=== PATIENT | female | born 1945 | race Caucasian/White ===

== ENCOUNTER 2018-06-05 14:35 | Inpatient (IN) | payer OTHER, MEDICAID ==
[~2018-06-05] VITALS: Ht 160 cm; Wt 56.9 kg
[2018-06-05 14:59] VITALS: Ht 160 cm; Wt 56.9 kg
--- NOTE | 2018-06-05 17:55 | NUR ---
PATIENT PRESENTS TO ED WITH C/O RUIZ AND DIZZINESS FOR THE PAST 3 DAYS. STS THAT SHE DOES HAVE NAUSEA AND VOMITING. DENIES PAIN ELSEWHERE. DENIES FEVER. PATIENT IS BREATHING E/U, BILATERAL CHEST RISE. BED AT LOWEST LEVEL. FAMILY AT BEDSIDE. DR. CEDILLO AT BEDSIDE PERFORMING MSE
[2018-06-05 18:05] LABS: BASOPHIL % 0.9 % (0-2); PLATELET COUNT 235 x10^3mcL (130-400); RED CELL DISTRIBUTION WIDTH 14.2 % (11.5-14.5)
[2018-06-05 18:22] LABS: ALKALINE PHOSPHATASE 103 U/L (46-116); ALT/SGPT 15 U/L (14-59); BILIRUBIN TOTAL 0.37 mg/dL (0.20-1.00); CARBON DIOXIDE 17.5 mmol/L (21-32); CHOLESTEROL 171 mg/dL (<200); CHOLESTEROL/HDL RATIO 3.9; GLUCOSE SERUM 153 mg/dL (74-106); HDL CHOLESTEROL 44 mg/dL (40-60); LIPASE 335 IU/L (73-393); TOTAL PROTEIN, SERUM 7.3 g/dL (6.4-8.2); TRIGLYCERIDES 134 mg/dL (<150)
[2018-06-05 18:31] LABS: FREE T4 0.88 ng/dL (0.76-1.46); T4(THYROXINE) 5.6 ug/dL (4.7-13.3)
[2018-06-05 18:32] LABS: CHLORIDE SERUM 58 mmol/L (98-107)
[2018-06-05 18:35] LABS: T3 TOTAL 0.8 ng/mL
--- NOTE | 2018-06-05 18:57 | NUR ---
CRITICAL LAB RESULT= TROPONIN LEVEL=0.140. DR. CEDILLO AND PRIMARY RN-CHAR, RN NOTIFIED.
[2018-06-05 18:58] LABS: AST/SGOT 24 U/L (15-37); SODIUM SERUM 132 mmol/L (136-145)
--- NOTE | 2018-06-05 19:07 | NUR ---
RECEIVED PATIENT REPORT FROM VICKY TOM TO ASSUME PRIMARY CARE
[2018-06-05 19:11] LABS: UA SPECIFIC GRAVITY 1.025 (1.005-1.035); microscopic required? YES; urine erythrocyte TRACE (NEGATIVE)
[2018-06-05 19:12] LABS: ALBUMIN 2.5 g/dL (3.4-5.0)
[2018-06-05 19:13] LABS: CREATININE SERUM 7.2 mg/dL (0.6-1.0); POTASSIUM SERUM 5.7 mmol/L (3.5-5.1)
--- NOTE | 2018-06-05 19:14 | NUR ---
PT MEDICATED PER EMAR ORDERS. PT REPORTS DIZZINESS WHILE LAYING IN ED GURNEY. PT DENIES ANY NAUSEA OR BLURRED VISION. PT HAS BED IN LOWEST SETTING WITH SAFETY MEASURES IN PLACE. PT HAS FAMIYL AT BEDSIDE. PT IS RESPS ARE E/U. NO DISTRESS NOTED
--- NOTE | 2018-06-05 19:16 | NUR ---
DR CEDILLO AT BEDSIDE TO DISCUSS PLAN OF CARE WITH PT
[2018-06-05] MEDS ORDERED: LOSARTAN POTASS1 TAB (19:17)
[2018-06-05] MEDS ORDERED: CALCITRIOL0.25 MCG (19:18)
[2018-06-05] MEDS ORDERED: VITAMIN B121000 MCG (19:19)
[2018-06-05 20:18] LABS: PHOSPHOROUS 4.5 mg/dL (2.5-4.9)
--- NOTE | 2018-06-05 21:05 | NUR ---
CALLED TO GIVE REPORT TO MIREYA TOM ON TELE FLOOR TO GIVE REPORT. RN ASKED TO CALL BACK IN 5 MIN. WILL CALL BACK
--- NOTE | 2018-06-05 21:35 | NUR ---
GAVE PT REPORT TO MIREYA TOM TO ASSUME PRIMARY CARE ONCE PT IS ADMITTED TO TELE FLOOR ROOM 250A.
--- NOTE | 2018-06-05 21:40 | NUR ---
PT WHEELED OUT OF ED VIA ED GURNEY. PT ADMITTED TO TELE FLOOR ROOM 250A. PT ESCORTED BY APPLE TOM. NO INCIDENCE NOTED
[2018-06-05 21:57] VITALS: BP 193/82
--- NOTE | 2018-06-05 22:01 | NUR ---
RECEIVED PT FROM ED VIA RAUL. ORIENTED PT TO ROOM AND SURROUNDINGS. IV NOTED TO RH PATENT AND INTACT. TELE 5 PLACED ON PT READNIG STA. INSTRUCTED PT ON THE USE OF CALL LIGHT FOR ASSISTANCE. ENDORSED PT TO PRIMARY NURSE MIREYA
[2018-06-06] VITALS (7 sets, daily range): BP systolic 122–190; BP diastolic 45–99
--- NOTE | 2018-06-06 01:33 | NUR ---
DR MAI MADE AWARE OF LATEST TROPONIN LEVEL 0.133 AWAITING FOR FURTHER ORDERS.
--- NOTE | 2018-06-06 03:04 | NUR ---
PATIENT GIVEN HYDRALAZINE 10 MG IVP ORDERED FOR BLOOD PRESSURE 195/89 ORDERED.
--- NOTE | 2018-06-06 06:21 | NUR ---
PATIENT RESTING IN BED AT THIS TIME. RESPIRATION EVEN AND UNLABORED, ON ROOM AIR. ONGOING 0.9% NS AT 100 CC/HR INFUSING WELL AT THE RIGHT HAND. DENIES DIZZINESS. DENIES PAIN. ASSISTED WITH NEEDS. SAFETY OBSERVED. PLACED BED IN THE LOWEST POSITION. PLACED CALL LIGHT WITHIN REACH AT ALL TIMES. STAYED OVERNIGHT.
[2018-06-06 06:27] LABS: CALCIUM 8.9 mg/dL (8.5-10.1); CHLORIDE SERUM 113 mmol/L (98-107); GLUCOSE SERUM 130 mg/dL (74-106); MAGNESIUM 1.8 mg/dL (1.8-2.4); PHOSPHOROUS 3.9 mg/dL (2.5-4.9); POTASSIUM SERUM 5.5 mmol/L (3.5-5.1); SODIUM SERUM 145 mmol/L (136-145)
[2018-06-06 06:40] LABS: CREATININE SERUM 6.8 mg/dL (0.6-1.0)
[2018-06-06 06:43] LABS: BASOPHIL % 0.4 % (0-2); PLATELET COUNT 224 x10^3mcL (130-400)
[2018-06-06 07:14] LABS: RED CELL DISTRIBUTION WIDTH 14.8 % (11.5-14.5)
--- NOTE | 2018-06-06 07:39 | NUR ---
RECEIVED AWAKE, ALERT AND ORIENTED. FOLLOWS COMMANDS. NO C/O DIZZINESS AT THIS TIME. FAMILY AT BEDSIDE. NO C/O PAIN OR DISCOMFORT. WILL CONTINUE WITH PLAN OF CARE.
--- NOTE | 2018-06-06 10:12 | NUR ---
BP 181/76, HYDRALAZINE GIVEN. PT ASYMPTOMATIC. DENIES LIGHTHEADED AT THIS TIME.
--- NOTE | 2018-06-06 14:12 | NUR ---
BP STILL ELEVETED, 191/90. PT MEDICATED WITH ORDERED HYDRALAZINE PO. RESTING IN BED. NO ACUTE DISTRESS NOTED. NO C/O PAIN OR DISCOMFORT. FAMILY AT BEDSIDE.
--- NOTE | 2018-06-06 15:22 | NUR ---
BP RECHECKED AND IS 156/77 HR 101. PT IN NO DISTRESS. RESTING IN BED.
--- NOTE | 2018-06-06 16:03 | NUR ---
BP NOW 122/63.
--- NOTE | 2018-06-06 18:24 | NUR ---
24 HRS URINE COLLECTION STARTED AT 1800. PT AND FAMILY AWARE, SPECIMENT CONTAINER PROVIDED.
--- NOTE | 2018-06-06 18:45 | NUR ---
REMAINS IN NO DISTRESS. AWAKE AND ALERT. SITTING ON A CHAIR EATING DINNER. NO C/O PAIN OR DISCOMFORT AT THIS TIME. IVF INFUSING WELL AND SITE CLEAR. CALL LIGHT WITHIN REACH. WILL BE ENDORSED TO INCOMING SHIFT.
--- NOTE | 2018-06-06 19:59 | NUR ---
RECEIVED PT IN BED AAOX4 KYRGYZ SPEAKING ONLY , PT DENY PAIN AT THE MOMENT , LUNG SOUNDS CTA, ABD SOFT BS ACTIVE X4, PIV INFILTRATED WILL RE=INSERT NEW IV , ON TELE NUMBER 5 SHOWS NRS , CALL LIGHT WITHIN PT'S REACH , WILL CON'T TO MONITOR AND ASSIST PT WITH ,CARE
[2018-06-06 20:03] LABS: AMPHETAMINE QUAL UR NONE DETECTED (See below)
--- NOTE | 2018-06-06 20:28 | NUR ---
PATIENT'S PLAN OF CARE WAS DISCUSSED AND REVIEWED WITH PANTS CUTTER: EDDIE MENDES
--- NOTE | 2018-06-07 00:33 | NUR ---
UNABLE TO COLLECT 24HRS URINE , PT'S HAVING LOOSE STOOL FROM LAXATIVE , WILL NOTIFY .
[2018-06-07 05:29] VITALS: BP 146/63
--- NOTE | 2018-06-07 05:57 | NUR ---
I HAVE REVIEWED THE DATA COLLECTION BY BUCK (NAME): EDDIE MENDES ENTERED ON (DATE/TIME): 06/06/18 I CONCUR WITH THE DATA AND ANY EXCEPTIONS OR COMMENTS ARE LISTED BELOW:
--- NOTE | 2018-06-07 06:25 | NUR ---
PT'S AWAKE SITTING ON THE EDGE OF THE BED, UNABLE TO COLLECT 24HRS URINE DUE TO MULTIPLE LOOSE STOOL , PIV INTACT INFUSING WELL , TELE ST HR 101, WILL ENDORSE TO AM NURSE TO F/U WITH PT .
[2018-06-07 07:12] LABS: CALCIUM 7.8 mg/dL (8.5-10.1); CHLORIDE SERUM 108 mmol/L (98-107); GLUCOSE SERUM 102 mg/dL (74-106); MAGNESIUM 1.6 mg/dL (1.8-2.4); PHOSPHOROUS 4.3 mg/dL (2.5-4.9); POTASSIUM SERUM 4.3 mmol/L (3.5-5.1); SODIUM SERUM 137 mmol/L (136-145)
[2018-06-07 07:14] LABS: BASOPHIL % 0.3 % (0-2); PLATELET COUNT 219 x10^3mcL (130-400); RED CELL DISTRIBUTION WIDTH 14.3 % (11.5-14.5)
[2018-06-07 07:18] LABS: CREATININE SERUM 6.7 mg/dL (0.6-1.0)
--- NOTE | 2018-06-07 07:45 | NUR ---
DR. BILLINGSLEY MADE AWARE OF ELEVETED BUN/CREAT. NO NEW ORDERS RECEIVED.
--- NOTE | 2018-06-07 07:56 | NUR ---
RECEIVED AWAKE, ALERT AND ORIENTED. IN NO RESP. DISTRESS. SITTING ON A CHAIR. IVF INFUSING WELL AND SITE CLEAR. FAMILY AT BEDSIDE.PER REPORT 24 HRS URINE COLLECTION HAS TO BE RESTARTED DUE TO PT HAVING WATERY STOOLS AFTER KAYAXALATE. PT/FAMILY AWARE THAT WE ARE STARTING COLLECTION OVER.C/O UPPER BACK PAIN. WILL MEDICATE INDICATED. CALL LIGHT WITHIN REACH.
[2018-06-07 08:04] VITALS: BP 141/65
--- NOTE | 2018-06-07 08:32 | NUR ---
ECHOCARDIOGRAM PENDING-PATIENT REQUESTING TEST BE DONE AFTER SHE GETS MEDICATED FOR PAIN
--- NOTE | 2018-06-07 10:07 | NUR ---
ECHOCARDIOGRAM PENDING-HAVING ULTRASOUND
[2018-06-07 12:18] VITALS: BP 142/60
--- NOTE | 2018-06-07 13:20 | NUR ---
SLEEPIN AT THIS TIME BUT AROUSABLE. NO ACUTE DISTRESS NOTED. NO C/O PAIN OR DISCOMFORT.
[2018-06-07 16:05] VITALS: BP 178/83
--- NOTE | 2018-06-07 18:16 | NUR ---
BP 178/83, PT ASMPTOMATIC. MEDICATED WITH HYDRALAZINE IVP PER PRN ORDER.
--- NOTE | 2018-06-07 18:41 | NUR ---
PT REMAINS IN NO DISTRESS, AWAKE AND ALERT. FAMILY AT BEDSIDE. NO C/O PAIN AT THIS TIME. IVF DC'D AND HL PATENT.24 HRS URINE COLLECTION IN PROGRESS AND PT/FAMILY AWARE. WILL BE ENDORSED TO INCOMING SHIFT.
--- NOTE | 2018-06-07 20:00 | NUR ---
RECEIVED PT IN BED,ALERT AND ORIENTED. COOK ISLANDER SPEAKING, AT THE BEDSIDE. RESP. EVEN AND UNLABORED. LUNG SOUNDS CLEAR, ON ROOM AIR, NO ACUTE DISTRESS NOTED. AFEBRILE . B/P READS 170/[address] HR IN THE 100S ON THE MONITOR , DENIES CP OR ANY DISCOMFORT. ON 24HR URINE COLLECTION IN PROGRESS, PT RE-INSTRUCTED. HL TO LH, INTACT AND PATENT. ASSISTED WITH HS CARE. CALL LIGHT WITHIN REACH. WILL CONTINUE TO MONITOR.
--- NOTE | 2018-06-07 21:58 | NUR ---
DUE MEDS GIVEN , INCLUDING B/P MED.ASHLEY. WELL. WILL CONTINUE TO MONITOR.
--- NOTE | 2018-06-08 01:23 | NUR ---
HAD X1 BROWNISH COLOR EMESIS, ABOUT 100MLS, MEDICATED WITH ZOFRAN IV ORDERED. WILL CONTINUE TO MONITOR.
--- NOTE | 2018-06-08 02:46 | NUR ---
ASLEEP AT THIS TIME, EASILY AROUSABLE. RESP. EVEN AND UNLABORED. NO ACUTE DISTRESS NOTED. WILL CONTINUE TO MONITOR.
--- NOTE | 2018-06-08 06:22 | NUR ---
REMAINS ON 24HR URINE COLLECTION. AFEBRILE AND VITAL SIGNS STABLE. RESP. EVEN AND UNLABORED. NO ACUTE DISTRESS NOTED. DUE MEDS GIVEN ORDERED, ASHLEY. WELL. NO COMPLAINTS NOTED AT THIS TIME. KEPT COMFORTABLE. DENIES CP OR ANY DISCOMFORT AT THIS TIME. WILL ENDORSE TO INCOMING NURSE.
[2018-06-08 06:27] VITALS: BP 160/58
[2018-06-08 06:35] LABS: BASOPHIL % 0.2 % (0-2); PLATELET COUNT 236 x10^3mcL (130-400)
--- NOTE | 2018-06-08 07:40 | NUR ---
RECEIVED PT IN BED A/A/OX4 DENIES RUIZ. RESP EVEN AND UNLABORED WITH CLEAR BS BILAT. DENIES ANY SOB/CP/PRESSURE. NOTED WITH TRACE EDEMA TO BLE. IV SL TO LH. ABD SOFT, NONTENDER WITH ACTIVE BS X4. DENIES ANY N/V AT THIS TIME. VOIDING FREELY. PT WITH ONGOING 24H URINE COLLECTION TO END AT 0800 THIS AM. NOTED SMALL AMOUNT ABOUT 500ML IN COLLECTION BOTTLE. PT DENIES ANY PAIN/DISCOMFORT WITH GEN WEAKNESS, UP WITH PT. ENCOURAGE INCREASE IN ACTIVITY TOLERATED. CALL LIGHT IN REACH NEEDS ATTENDED TO AND FAMILY AT BEDSIDE.
[2018-06-08 09:55] VITALS: BP 153/71
[2018-06-08 12:05] LABS: CREATININE UR 67.8 mg/dL
[2018-06-08 12:08] LABS: CREATININE UR 66.8 mg/dL
[2018-06-08 12:25] LABS: CALCIUM 8.2 mg/dL (8.5-10.1); CARBON DIOXIDE 17.6 mmol/L (21-32); CHLORIDE SERUM 108 mmol/L (98-107); GLUCOSE SERUM 95 mg/dL (74-106); POTASSIUM SERUM 4.9 mmol/L (3.5-5.1); SODIUM SERUM 139 mmol/L (136-145)
[2018-06-08 12:32] LABS: CREATININE SERUM 6.9 mg/dL (0.6-1.0)
[2018-06-08 12:40] LABS: CREATININE SERUM 6.9 mg/dL (0.6-1.0)
[2018-06-08 12:43] LABS: COLLECTION TIME URINE 24 HOUR; CREATININE CLEARANCE UR 4 mL/min (88-128); HEIGHT 63 inches; VOLUME UR 550 ML; WEIGHT (LBS) 124 lbs
--- NOTE | 2018-06-08 12:45 | NUR ---
PT EATING LUNCH DENIES ANY DISCOMFORT AT THIS TIME. AT BEDSIDE. CALL LIGHT IN REACH NEEDS ATTENDED TO.
[2018-06-08 13:25] VITALS: BP 152/69
--- NOTE | 2018-06-08 15:28 | NUR ---
Initial Nutrition Assessment Dx: Non-Stemi CP, CKD PMHx: HTN, DM, Unspecified bone disease, B/L cataracts PSHx: Hysterectomy Labs: (06/07) Na 137, K 4.3, BG 102, BUN 64H, Cr 6.7H, Ca 7.8L, P 4.3, Trop + x 2, WBC 10.6, H/H 10.3L/32L, A1c 9.5H BG accucheck readings 06/06-06/08: 100-286 mg/dL with most readings <180 mg/dL. Insulin coverage provided PRN. Meds: Adalat, Antivert, Apresoline, Aspirin, Colace, D50%, Humulin Hydralazine, [place], Procrit, Rocaltrol, Tylenol, Vit B12, Zofran Diet: CCHO PO Intake: (06/07) L: 100% D: 90% (06/06) B/L: 100% Ht: 63" (160 cm) Wt: 124# (56.5 kg) BMI: 22.1 (WNL) IBW: 115# %IBW: 108% UBW: 120-125# Age: 73 y/o elderly female Food Allergies: NKFA Skin: Intact Omar: 17 Edema: Trace to BLE GI: Last BM x 1 (06/08) Low urine output (06/08): 500 mL per ortho nurse notes. Per H&P, pt. admitted with intermittent dizziness with associated myalgia and generalized malaise over 1 year. Also associated with recent onset of N/V x few days prior, decreased appetite, and worsening malaise. Admits to non-compliance with medical regimen during her recent travel per provider. Renal US conducted on 06/07/18 with findings that suggest medical renal disease without evidence of hydronephrosis per provider notes. IJ catheter placement will take place with possible HD sessions occurring today 06/08/18 per bed huddle discussion. Pt. endorses fair to good appetite with no GI distress associated with diet order. Pt. and family members highly receptive to CCHO/Renal diet education and was appreciative for verbal education/NCM handouts provided. Problem with: No c/o N/V/D/C Problems with: Chewing: N Swallowing: N Current appetite: Fair to good Recent wt change: None %wt change: N/A Vitamin/Supplement use: None Special diet at home: Regular/renal Physical activity: None Education: Notified pt. of CCHO diet and associated restrictions. Advised pt. to also follow renal diet for electrolyte and BUN/Cr management. Emphasized the importance of CCHO counting for DM management. Provided NCM renal diet/CCHO diet handouts. Pt. and family members verbalized understanding. Estimated Nutritional Needs Based on actual body weight 56.5 kg: Energy: 3235-3833 kcal/d (30-35 kcal/kg-HD maintenance) Protein: 57-68 g/d (1.0-1.2 g/kg)-HD maintenance and preservation of lean body mass Fluid: 8461-9488 ml/d (1 ml/kcal-fluid balance) or per doctor Nutrition Diagnosis 1. Altered nutrition related laboratory values r/t potential non-compliance to medication regimen and Hx CKD and DM AEB elevated BUN 64, Cr 6.7, and A1c 9.5. Intervention/RD recommendations 1. Change diet to CCHO, Renal diet for improved disease state management. 2. Nephro-Walker QD recommended for HD maintenance. 3. If pt. undergoing HD, recommendation to add Nepro QD for an additional 425 kcal and 20 g protein. Monitor/Evaluate Goal: PO intake at least 75% of estimated needs Monitor: PO intake, Labs, GI function, diet tolerance, renal/BG labs F/U in 3-5 days as moderate risk (06/11-06/13)
--- NOTE | 2018-06-08 18:10 | NUR ---
PT RESTING COMFORTABLY AT THIS TIME. DENIES ANY DISCOMFORT. FAMILY AT BEDSIDE. CALL LIGHT IN REACH NEEDS ATTENDED TO.
[2018-06-08 19:04] VITALS: BP 148/76
--- NOTE | 2018-06-08 19:25 | NUR ---
RECEIVED PT LYING IN BED, AAOX4. DENIES HEADACHE/DIZZINESS. ABLE TO FOLLOW COMMANDS. NO SOB NOTED, LUNG SOUNDS CTA. DENIES CHEST PAIN/PRESSURE, ON TELE#5, SINUS TACHYCARDIA ON THE MONITOR, HR AT 102. W/ WEAK PEDAL PULSES. W/ TRACE EDEMA ON BLE. DENIES ABDOMINAL DISCOMFORT. VOIDS BUT W/ LOW URINE OUTPUT. W/ PURPLISH AND PINKISH DISCOLORATION ON RFA AND LEFT ANTECUBITAL AREA. IV SITE ON THE LEFT HAND IS PATENT AND INTACT. SIDE RAILS UPX2. CALL LIGHT ON REACH. BED ON THE LOWEST POSITION. HOB ELEVATED AT 30 DEG. FAMILY AT BEDSIDE. WILL CONT TO MONITOR
[2018-06-08 20:34] VITALS: BP 165/82
--- NOTE | 2018-06-09 01:11 | NUR ---
PT HAS HER EYES CLOSED, NO S/S OF PAIN AND SOB NOTED. FAMILY AT BEDSIDE. CALL LIGHT ON REACH. WILL CONT TO MONITOR
[2018-06-09 05:05] VITALS: BP 153/68
--- NOTE | 2018-06-09 05:10 | NUR ---
RECEIVED REPORT FROM NOC SHIFT ASSUMING PT CARE RESPONSABILITY.
--- NOTE | 2018-06-09 05:16 | NUR ---
REPORT GIVEN TO [facility] FOR CONTINUITY OF CARE
--- NOTE | 2018-06-09 06:05 | NUR ---
RECEIVED PT IN BED A/A/OX4 DENIES RUIZ. RESP EVEN AND UNLABORED WITH CLEAR BS BILAT. DENIES ANY SOB/CP/PRESSURE AT THIS TIME. ST ON TELE HR 100-105. DENIES ANY CP/PRESSURE AT THIS TIME. NOTED WITH TRACE EDEMA TO BLE. IV SL TO LH PATENT. ABD SOFT, NONTENDER WITH ACTIVE BS X4. DENIES ANY N/V AT THIS TIME. VOIDING FREELY WITH LOW URINE OUTPUT. CURRENTLY BEING WORKED UP FOR RENAL FAILURE WITH ELEVATED B/C 66/6.9. PT STATED SHE HAD VOIDED ONCE LAST LIGHT IN THE BR AND THIS AM ASSISTED TO CAMMODE WITH 300ML OUTPUT. CALL LIGHT IN REACH NEEDS ATTENDED TO.
[2018-06-09 06:35] LABS: BASOPHIL % 0.4 % (0-2); PLATELET COUNT 218 x10^3mcL (130-400); RED CELL DISTRIBUTION WIDTH 13.8 % (11.5-14.5)
[2018-06-09 06:54] LABS: CALCIUM 8.2 mg/dL (8.5-10.1); CARBON DIOXIDE 17.8 mmol/L (21-32); CHLORIDE SERUM 106 mmol/L (98-107); GLUCOSE SERUM 88 mg/dL (74-106); POTASSIUM SERUM 4.3 mmol/L (3.5-5.1); SODIUM SERUM 137 mmol/L (136-145)
[2018-06-09 07:02] LABS: CREATININE SERUM 7.2 mg/dL (0.6-1.0)
[2018-06-09 09:00] VITALS: BP 142/54
[2018-06-09 14:07] VITALS: BP 124/52
--- NOTE | 2018-06-09 14:15 | NUR ---
DR. CRUZ EVALUATED PT. SPOKE WITH PT ABOUT STARTING HD TREATMENT AND ALLOWING FOR PLACEMENT OF NURIS CATH. PT REQUESTED TIME TO DISCUSS WITH FAMILY. STATED TO NOTIFY NURSING HOME ADMINISTRATOR ONCE PT HAD DICISION SO THEY COULD ORDER CONSULT FOR NURIS CATH PLACEMENT.
--- NOTE | 2018-06-09 14:44 | NUR ---
PHYSICAL THERAPY DAILY NOTES CO-SIGN All documentation done by the [employer] for 06/09/18 has been reviewed. I agree with the documentation. Reviewed/Co-Signed by: Yue Roque PT Documentation Done by:CELESTINO CAIN
[2018-06-09 17:00] VITALS: BP 151/67
--- NOTE | 2018-06-09 17:59 | NUR ---
PT VERBALIZED THAT SHE IS AGREABLE TO HAVE HD STARTED. ROBIN CADE CALLED REQUESTED AND NOTIFIED. STATED HE WILL CONTACT DR. GONSALVES TO PLACE NURIS CATH. PT MADE AWARE OF POSSIBLE PROCEDURE TOMORROW AND NEED FOR NPO STATUS AFTER MIDNIGHT. AWAITIGN FURTHER ORDER FROM PLANT TECHNICIAN/CONTROL ROOM OPERATOR.
--- NOTE | 2018-06-09 18:45 | NUR ---
OBTAINED SIGNATURE ON CONSENT FOR HD TX DISCUSSED BY DR. CRUZ. PT AWARE OF PLAN D/C TOMORROW ONCE NURIS CATH IS PLACE. MADE AWARE OF NEED FOR NPO STATUS IN PREPAREATION FOR POSSIBLE PROCEDURE.
--- NOTE | 2018-06-09 20:00 | NUR ---
PT A/A/O X4. DENIES DIZZINESS AND HEADACHE. BREATH SOUNDS CLEAR. BREATHING EVEN AND UNLABORED ON ROOM AIR. DENIES CHEST PAIN AND PRESSURE. BOWEL SOUNDS ACTIVE. NO C/O N/V AND ABD PAIN. TRACE EDEMA NOTED ON BLE. IV HEPLOCK INTACT ON THE LEFT HAND. MADE PT COMFORTABLE. PLACED CALL LIGHT WITH IN REACH. WILL CONTINUE TO MONITOR.
[2018-06-09 21:27] VITALS: BP 156/78
--- NOTE | 2018-06-10 00:54 | NUR ---
PT RESTING WITH EYES CLOSED NO DISTRESS AND DISCOMFORT NOTED. WILL CONTINUE TO MONITOR.
[2018-06-10 05:48] VITALS: BP 141/58
--- NOTE | 2018-06-10 05:59 | NUR ---
PT QUIET AND RESTING. NO SIGNIFICANT CHANGES NOTED. IV HEPLOCK INTACT. MADE PT COMFORTABLE. WILL ENDORSE TO THE AM NURSE ACCORDINGLY.
[2018-06-10 06:42] LABS: CALCIUM 8.2 mg/dL (8.5-10.1); CARBON DIOXIDE 17.6 mmol/L (21-32); CHLORIDE SERUM 105 mmol/L (98-107); GLUCOSE SERUM 92 mg/dL (74-106); POTASSIUM SERUM 4.2 mmol/L (3.5-5.1); SODIUM SERUM 136 mmol/L (136-145)
[2018-06-10 06:44] LABS: CREATININE SERUM 7.7 mg/dL (0.6-1.0)
--- NOTE | 2018-06-10 07:30 | NUR ---
RECEIVED PATIENT IN BED, WITH SPOUSE AT BEDSIDE. PATIENT IS KYRGYZ SPEAKING ONLY. ALERT AND ORIENTED X 4. TELE 5 SR/ST HR 100. TRACE EDEMA NOTED BLE. RESP EVEN AND UNLABORED, LUNGS CLEAR ON ROOM AIR. PATIENT IS TEARFUL AT TIMES. PERMA CATH PLACEMENT PLANNED FOR TODAY PER NOC NURSE. NO ACUTE DISTRESS NOTED. WILL CONTINUE TO MONITOR.
[2018-06-10 08:01] VITALS: BP 136/62
[2018-06-10 08:02] LABS: BASOPHIL % 0.3 % (0-2); PLATELET COUNT 236 x10^3mcL (130-400)
[2018-06-10 08:04] LABS: RED CELL DISTRIBUTION WIDTH 14.7 % (11.5-14.5)
--- NOTE | 2018-06-10 09:15 | NUR ---
PATIENT HAD JATINDER WIPES DONE FOR SURGICAL PROCEDURE AT THIS TIME. WILL CONTINUE TO MONITOR.
--- NOTE | 2018-06-10 10:30 | NUR ---
PATIENT DOWN TO OR AT THIS TIME VIA GURNEY. WILL CONTINUE TO MONITOR UPON RETURN.
--- NOTE | 2018-06-10 11:29 | NUR ---
AFTER MULTIPLE ATTMEPTS UNABLE TO SEE PATIENT FOR P.T. DUE TO HAVING PROCEDURE DONE (PERMCATH).
--- NOTE | 2018-06-10 12:00 | NUR ---
I HAVE REVIEWED THE DATA COLLECTION BY BUCK (NAME):JAY JIMENEZ ENTERED ON (DATE/TIME):06/10/18 81342 NOON I CONCUR WITH THE DATA AND ANY EXCEPTIONS OR COMMENTS ARE LISTED BELOW:
--- NOTE | 2018-06-10 12:36 | NUR ---
PATIENT RETURNED FROM OR VIA GURNEY AT THIS TIME. AWAKE, ALERT ABLE TO MOVE SLEF FROM GURNEY TO BED. AT BEDSIDE. RT IJ TUNNEL CATH NOTED, DRESSING C/D/I NO BLEEDING NOTED. PATIENT TO BE ON BEDREST X 4 HRS. PATIENT AND HER SPOUSE AWARE. WILL CONTINUE TO MONITOR.
[2018-06-10 16:05] VITALS: BP 145/57
--- NOTE | 2018-06-10 16:24 | NUR ---
PATIENT'S PLAN OF CARE WAS DISCUSSED AND REVIEWED WITH EPIC CUPID ANALYST:JAY JIMENEZ
--- NOTE | 2018-06-10 17:25 | NUR ---
PATIENT HAS BEEN IN BED FOR 4 HOURS AFTER SURGICAL PROCEDURE ORDERED. SITTING UP IN RECLINER CHAIR AT BEDSIDE WITH FAMILY MEMBERS AT BEDSIDE. REMAINS ALERT AND ORIENTED. NO C/O PAIN OR DISCOMFORT. RT IJ TUNNEL CATH REMAINS NOTED WITH NO BLEEDING NOTED AT THIS TIME. PATIENT TO HAVE HD TOMORROW. ASSISTED UP TO THE BATHROOM PRN. GENERALZIED WEAKNESS NOTED. WILL CONTINUE TO MONITOR.
--- NOTE | 2018-06-10 19:56 | NUR ---
EYES CLOSED, EASILY AWAKENED. ORIENTED TO NAME, PLACE, TIME AND SITUATION. SPEECH CLEAR AND APPROPRIATE. BREATHING EVEN AND UNLABORED ON ROOM AIR. NOTED DIALYSIS ACCESS CATHETER TO RIGHT SIDE OF CHEST. DRESSING CDI.NOTED SLIGHT BLUISH TINGE TO DIALYSIS INSERTION SITE. NO BLEEDING NOTED. AT BEDSIDE, ASKED TO STAY TONIGHT, OK WITH CEDRICK VIDAL.
[2018-06-10 20:39] VITALS: BP 120/63
--- NOTE | 2018-06-10 23:01 | NUR ---
EYES CLOSED, BREATHING EVEN AND UNLABORED. CALL LIGHT WITHIN EASY REACH.
[2018-06-11 05:26] VITALS: BP 154/69
--- NOTE | 2018-06-11 05:49 | NUR ---
SITTING ON BED. STATED HAVING PAIN TO DIALYSIS CATHETER ACCESS SITE. NO BLEEDING, REDNESS OR DRAINAGE NOTED FROM DIALYSIS CATHETER INSERTION SITE. DRESSING CDI. TYLENOL 650MG ADMINISTERED PO FOR PAIN.
--- NOTE | 2018-06-11 06:11 | NUR ---
saline lock from redness or swelling
[2018-06-11 06:37] LABS: CARBON DIOXIDE 18.7 mmol/L (21-32); CHLORIDE SERUM 105 mmol/L (98-107); GLUCOSE SERUM 95 mg/dL (74-106); POTASSIUM SERUM 4.7 mmol/L (3.5-5.1); SODIUM SERUM 136 mmol/L (136-145)
[2018-06-11 06:56] LABS: CREATININE SERUM 7.8 mg/dL (0.6-1.0)
[2018-06-11 07:03] LABS: BASOPHIL % 0.1 % (0-2); PLATELET COUNT 238 x10^3mcL (130-400); RED CELL DISTRIBUTION WIDTH 15.3 % (11.5-14.5)
--- NOTE | 2018-06-11 07:14 | NUR ---
eyes closed, breathing even and unlabored on room air. at bedside. endorsed to nurse mitch
--- NOTE | 2018-06-11 07:15 | NUR ---
RECEIVED A BEDSIDE REPORT. SEEN AAOX4. NO RESP DISTRESS NOTED. SPOUSE AT BEDSIDE.
--- NOTE | 2018-06-11 07:50 | NUR ---
NAUSEA AND VOMITED X1, ZOFRAN 4MG IVP GIVEN SLOWLY. WILL CONTINUE TO MONITOR.
--- NOTE | 2018-06-11 08:40 | NUR ---
NOTED FINISHED 50% OF BREAKFAST. STATED NAUSEA SUBSIDED. SCHEDULED AM MEDS GIVEN. TUNNELLED HD CATHETER TO RIGHT CHEST WALL WITH DRSG CDI. STATED A LITTLE BIT SORE TO CATHETER SITE. PATIENT WILL HAVE HEMODIALYSIS TODAY, PATIENT AND HER SPOUSE MADE AWARE. S/L TO LT HAND INTACT AND PATENT. CALL LIGHT PLACED WITHIN EASY REACH. SIDERAILS UP X2.
[2018-06-11 08:55] VITALS: BP 145/63
--- NOTE | 2018-06-11 10:45 | NUR ---
LAYING IN BED WATCHING TV. BREATHING E/U ON ROOM AIR.
[2018-06-11 13:01] VITALS: BP 165/68
--- NOTE | 2018-06-11 13:54 | NUR ---
HEEL PADDER AT BEDSIDE FOR HD. PATIENT'S SPOUSE AT BEDSIDE.
--- NOTE | 2018-06-11 15:00 | NUR ---
HEMODIALYSIS COMPLETED. NET FLUID REMOVED =3,000 ML. DENIES PAIN. BP 128/66, HR 102, RR 18, O2SAT 99% ON ROOM AIR, AFEBRILE.
--- NOTE | 2018-06-11 15:49 | NUR ---
PHYSICAL THERAPY DAILY NOTES CO-SIGN All documentation done by the Coating Line Worker for 06/11/18 has been reviewed. I agree with the documentation. Reviewed/Co-Signed by: Yue Roque PT Documentation Done by:CELESTINO CAIN
[2018-06-11 15:58] VITALS: BP 150/76
--- NOTE | 2018-06-11 17:46 | NUR ---
RESTING WELL AFTER DIALYSIS DONE. DENIES PAIN. BREATHING E/U ON ROOM AIR. TUNNELLED CATHETER WITH DRSG CDI. TOLERATED TO [facility] DIET WELL.
--- NOTE | 2018-06-11 19:20 | NUR ---
AWAKE, ALERT, ORIENTED TO NAME, PLACE, TIME AND SITUATION. SPEECH CLEAR AND APPROPRIATE. STATED FEELING BETTER, DENIES HAVING PAIN. HAD DIALYSIS TODAY, DAY SHIFT NURSE REPORTED 3000ML OUT. BREATHING EVEN AND UNLABORED ON ROOM AIR. TO STAY THE NIGHT.
[2018-06-11 20:39] VITALS: BP 157/51
--- NOTE | 2018-06-11 23:05 | NUR ---
eyes closed, breathing even and unlabored. on recliner at bedside. call light within easy reach.
[2018-06-12] VITALS (8 sets, daily range): BP systolic 118–184; BP diastolic 56–89
--- NOTE | 2018-06-12 05:44 | NUR ---
SITTING UP ON BED. STATED FEELING A LITTLE SORE TO RIGHT SIDE OF NECK, FEELS LIKE SOMETHING PINCHING HER. EXPLAINED THIS IS WHERE HERE DIALYSIS CATHETER IS. NO REDNESS, DRAINAGE OR BLEEDING NOTED TO DIALYSIS SITE. BREATHING EVEN AND UNLABORED ON ROOM AIR. CALL LIGHT WITHIN EASY REACH.
[2018-06-12 06:25] LABS: CALCIUM 8.1 mg/dL (8.5-10.1); CARBON DIOXIDE 25.1 mmol/L (21-32); CHLORIDE SERUM 105 mmol/L (98-107); GLUCOSE SERUM 88 mg/dL (74-106); POTASSIUM SERUM 3.8 mmol/L (3.5-5.1); SODIUM SERUM 138 mmol/L (136-145)
[2018-06-12 06:31] LABS: CREATININE SERUM 5.9 mg/dL (0.6-1.0)
--- NOTE | 2018-06-12 07:07 | NUR ---
eyes closed, breathing even and unlabored. at bedside. endorsed to nurse spring.
--- NOTE | 2018-06-12 07:18 | NUR ---
AAO X4.UKRAINIAN MOSTLY.DENIES ANY PAIN/DISCOMFORT.LUNGS CLEAR.ON ST ON THE MONITOR.AS=340.IV SALINE LOCKED.R CHEST WITH NURIS SPLIT FOR DIALYSIS.FOR DIALYSIS TODAY/CALL LIGHT WITHIN REACH.INSTRUCTED TO CALL FOR ANY PAIN/DISCOMFORT.WILL CONTINUE TO MONITOR PT.
[2018-06-12 07:49] LABS: BASOPHIL % 0.1 % (0-2); PLATELET COUNT 235 x10^3mcL (130-400); RED CELL DISTRIBUTION WIDTH 14.7 % (11.5-14.5)
--- NOTE | 2018-06-12 12:51 | NUR ---
1. Change diet to CCHO, Renal Standard diet for Dz management. 2. Recommend nephrovite QD for HD maintenance. 3. If pt on HD, recommend adding Nepro QD for additional 425 kcal and 19 gm protein daily. Please see F/U Nutrition Assessment for details.
--- NOTE | 2018-06-12 12:51 | NUR ---
Follow-up Nutrition Assessment- Dx: Non-Stemi CP, CKD Labs: (06/12) BUN 36 H, CRE 5.9 H, Ca 8.1 L, H/H 10.2 L/30L Meds: aspirin, colace, D50%W, humulin, VIT B12, zofran, heparin Diet: Renal Standard diet x 2 days PO intake: (06/11) 93% x 3 meals; (06/12) 100% of breakfast Weights: (06/05) 56.5 kg; (06/12) 56.9 kg Skin: ecchymosis to BUE. Omar: 19 Edema: none Last BM: 06/10/18 Per providers progress notes, from cardiovascular standpoint, no indication at this time to consider diagnostic cardiac catheterization with no clear evidence of myocardial ischemia and no complaints of anginal symptoms. However, cannot completely exclude the underlying possibility of coronary artery disease. If patient presents with anginal symptoms, then there would be benefit to consider noninvasive stress testing versus diagnostic cardiac catheterization. Family at bedside at time of RD visit reported that pt ate well this morning. HD ongoing, and lunch tray at bedside remains untouched. Family also reported that pt had 1 episode of vomiting around 0700. RD awaiting call back from HONING MACHINE OPERATOR PRODUCTION for rec. Estimated Nutritional Needs based on CBW 56.5 kg: Energy: 5927-0418 kcal/d (30-35 kcal- for HD maintenance) Protein: 57-68 g/d (1-1.2 g/kg- HD maintenance and prevention of lean body mass losses) Fluid: per MD order-(for CKD) Nutrition Diagnosis 1. Altered nutrition related laboratory values r/t potention non-compliance to medication regimen and Hx CKD and DM AEB elevated BUN, CRE, and HgA1c values. (ongoing) Intervention 1. Change diet to CCHO, Renal Standard diet for Dz management. 2. Recommend nephrovite QD for HD maintenance. 3. If pt on HD, recommend adding Nepro QD for additional 425 kcal and 19 gm protein daily. Monitor/Evaluate Previous goal: PO intake at least 75% of estimated needs. Goal: PO intake at least 75% of estimated needs Monitor: PO intake, Labs, GI function F/U in 3-5 days as moderate risk 2/4-2/6
--- NOTE | 2018-06-12 13:33 | NUR ---
GAVE PT SCHEDULED HYDRALAZINE AND NIFEDIPINE FOR DS=004/83 FK=[id number].
--- NOTE | 2018-06-12 15:16 | NUR ---
DIALYSIS DONE WITH 2.4 L OUT.PT TOLERATED IT WELL.V/S STABLE.
--- NOTE | 2018-06-12 15:21 | NUR ---
PHYSICAL THERAPY DAILY NOTES CO-SIGN All documentation done by the Tool Chaser for 06/12/18 has been reviewed. I agree with the documentation. Reviewed/Co-Signed by: Yue Roque PT Documentation Done by:CELESTINO CAIN PTA
--- NOTE | 2018-06-12 18:27 | NUR ---
NO SIGNIFICANT CHANGE NOTED.WILL ENDORSE TO NEXT SHIFT.
--- NOTE | 2018-06-12 20:00 | NUR ---
RECEIVED PT IN BED AWAKE VERBAL [place] SPEAKING WITH MARKED WEAKNESS, DENIES PAIN S/P HD PUTTING OUT 2.4 L RT IJ NURIS SPIT CATH INTACT, IV ACCESS LH PATENT NON INFIL FLUSHING WELL, TELE #[address] IN THE MONITOR HR @ 100'S NO CP OR PRESSURE, NO DISTRESS LUNGS CTA, SCD'S FOR DVT PROPHYLAXIS, NOTED ROOM VERY WARM, TEMP 99, ADJUSTED ROOM TEMP, SHIFT ASSESSMENT DONE, AT BEDSIDE CONT TO MONITOR.
--- NOTE | 2018-06-12 22:11 | NUR ---
BLD SUGAR @ 2100 56 MG/DL, D50 GIVEN PER PROT, THEN BLD RECHECKED AT THIS TIME RESULT IS 111 MG/DL, COMFORTABLE AT THIS TIME.
--- NOTE | 2018-06-13 02:27 | NUR ---
PT ASLEEP NO S/SX OF PAIN OR DISCOMFORTS NO DISTRESS, AT BEDSIDE, VISUAL CHECKED AT INTERVALS.
[2018-06-13 05:44] VITALS: BP 149/63
--- NOTE | 2018-06-13 06:27 | NUR ---
BP 149/63, ASYMPTOMATIC, PT STILL WITH GEN WEAKNESS, MOD MAX ASSIST FOR BED MOBILITY, AT BEDSIDE PARTICIPATES CARE, BS 125 MG/DL, CONT TO MONITOR.
[2018-06-13 07:01] LABS: CALCIUM 8.5 mg/dL (8.5-10.1); CARBON DIOXIDE 24.1 mmol/L (21-32); CHLORIDE SERUM 104 mmol/L (98-107); GLUCOSE SERUM 127 mg/dL (74-106); POTASSIUM SERUM 3.9 mmol/L (3.5-5.1); SODIUM SERUM 139 mmol/L (136-145)
[2018-06-13 07:02] LABS: CREATININE SERUM 4.1 mg/dL (0.6-1.0)
--- NOTE | 2018-06-13 07:50 | NUR ---
PATIENT RESTING IN BED, AT BEDSIDE. PATIENT DENIES CHEST PAIN. DENIES RUIZ, DIZZINESS. TELE MONITOR IN PLACE, SINUS TACHY. NO SOB NOTED, PT ON ROOM AIR. PATIENT IS AMBULATORY, STEADY GAIT. IV TO LEFT HAND SALINE LOCK, CDI, NO REDNESS SWELLING OR PAIN AT SITE. RIGHT IJ NURIS SPLINT, CDI. INSTRUCTED PT TO CALL FOR ASSISTANCE WHEN NEEDED, CALL LIGHT WITHIN REACH. BED IN LOW POSITIN. WILL CONTINUE TO MONITOR.
[2018-06-13 09:06] VITALS: BP 130/58
--- NOTE | 2018-06-13 09:45 | NUR ---
DR. MCFARLANE AT BEDSIDE.
--- NOTE | 2018-06-13 10:00 | NUR ---
ROBIN RODARTE AT BEDSIDE, PT INSTRUCTED TO AMBULATE AROUND HALLWAYS AND TAKE REST IF NEEDED. PLANNING TO ARRANGE OUTPATIENT HD. PT VERBALIZES UNDERSTANDING . WILL CONTINUE TO MONITOR.
--- NOTE | 2018-06-13 10:10 | NUR ---
PHYSICAL THERAPY AT BEDSIDE.
[2018-06-13 13:23] VITALS: BP 138/61
--- NOTE | 2018-06-13 15:03 | NUR ---
HD NURSE AT BEDSIDE.
[2018-06-13 17:16] VITALS: BP 107/59
--- NOTE | 2018-06-13 17:50 | NUR ---
HD COMPLETED, 2100ML OUTPUT.
--- NOTE | 2018-06-13 18:03 | NUR ---
PATIENT APPEARED SAD, WHEN I ASKED WHATS WRONG SHE STATED "I FEEL TIRED". PATIENT HAD JUST FINISHED HD. PATIENT STATES SHES OKAY, JUST REALLY TIRED. DENIES PAIN AT THIS TIME. NO SOB NOTED, ON ROOM AIR. L HAND IV SALINE LOCK, CDI. RIGHT IJ NURIS SPLINT, CDI. NO ACUTE CHANGES THROUGH OUT SHIFT, PATIENT IS STABLE. WILL ENDORSE REPORT TO NIGHT NURSE. CALL LIGHT WITHIN REACH, BED IN LOW POSITION.
--- NOTE | 2018-06-13 20:05 | NUR ---
PT IN BED MORE AWARE AND CONVERSANT JUST COMPLETED HD AND PUTTING OUT 2100 CC CLAIMED FEELING HOT AFTER DIALYSIS AND STOMACH IS BLOATED, DENIES PAIN, NO NAUSEA OR VOMITING, V/S STABLE, TELE #[address] IN THE MONITOR, NURIS SPLIT @ RT UPPER CHEST INPLACED WITH INTACT DRESSING, NO SIGNS OF IRRITATION, IV ACCESS LH PATENT NON INFIL, SCD'S FOR DVT PROPHYLAXIS, MD AWARE OF PT'S CONCERNS, NNO AT THIS TIME, SHIFT ASSESSMENT DONE, CONT TO MONITOR, AT BEDSIDE.
[2018-06-13 20:58] VITALS: BP 133/56
--- NOTE | 2018-06-13 21:06 | NUR ---
NEGRO KWOK ASSUMED THE CARE.
--- NOTE | 2018-06-13 21:14 | NUR ---
RECEIVED REPORT FROM RN FOR CONTINUITY OF CARE. PT STABLE, RESTING, AT BEDSIDE. NO DISTRESS NOTED. WILL CONTINUE TO MONITOR.
--- NOTE | 2018-06-14 00:03 | NUR ---
PT C/O 01/19 PAIN TO R UPPER NURIS SPLINT CATH; DR. OLIVEIRA AWARE. NORCO GIVEN AT THIS TIME. WILL CONTINUE TO MONITOR.
--- NOTE | 2018-06-14 00:32 | NUR ---
DR. OLIVEIRA IN TO SEE PT AND ASSESS; PT CONTINUING TO C/O PAIN. AWAITING FURTHER ORDERS.
--- NOTE | 2018-06-14 00:49 | NUR ---
PT GIVEN MORPHINE 2 MG IVP ONE TIME FOR PAIN TO R UPPER CHEST AREA, AROUND MADELIN CATH PLACEMENT. WILL CONTINUE TO MONITOR.
--- NOTE | 2018-06-14 04:59 | NUR ---
DR. OLIVEIRA PAGED; PT CONTINUING TO HAVE PAIN TO R UPPER CHEST AREA. WILL CONTINUE TO MONITOR PT. AT BEDSIDE.
--- NOTE | 2018-06-14 05:25 | NUR ---
MD WENT IN TO SEE PT; PT DENIES PAIN AT THIS TIME AND IS C/O OF ITHINESS TO R UPPER CHEST AREA. WILL CONTINUE TO MONITOR.
[2018-06-14 06:04] VITALS: BP 146/71
--- NOTE | 2018-06-14 06:41 | NUR ---
PT RESTED INTERMITTENTLY DURING THE NIGHT. NO ACUTE DISTRESS NOTED AT THIS TIME. NO C/O PAIN. PT GIVEN BENADRYL IVP FOR ITCHINESS, NO FURTHER C/O OF ITCHINESS AT THIS TIME. IV TO LFA SALINE LOCKED; PATENT AND INTACT. ALL SAFETY MEASURS MAINTAINED. CALL LIGHT IN REACH. NEAR BEDSIDE. WILL CONTINUE TO MONITOR.
--- NOTE | 2018-06-14 07:15 | NUR ---
PT SLEEPING AT MOMENT. EFFORTLESS BREATHING ON ROOM AIR. NO S/S OF DISTRESS. BED IN LOWEST POSITION, CALL LIGHT WITHIN REACH. AT BEDSIDE.
[2018-06-14 08:30] VITALS: BP 143/74
[2018-06-14 09:13] LABS: CALCIUM 8.2 mg/dL (8.5-10.1); CARBON DIOXIDE 25.4 mmol/L (21-32); CHLORIDE SERUM 99 mmol/L (98-107); CREATININE SERUM 3.7 mg/dL (0.6-1.0); GLUCOSE SERUM 141 mg/dL (74-106); POTASSIUM SERUM 3.7 mmol/L (3.5-5.1); SODIUM SERUM 133 mmol/L (136-145)
[2018-06-14 13:00] VITALS: BP 136/57
--- NOTE | 2018-06-14 13:32 | NUR ---
PT AWAKE, ALER, ORIENTED. VERBALIZES NEEDS. CATHETER SITE US COMPLETED. EFFORTLESS BREATHING ON ROOM AIR. REPORTS COMFORT AT MOMENT. BED IN LOWEST POSITION, CALL LIGHT WITHIN REACH. AT BEDSIDE.
--- NOTE | 2018-06-14 17:10 | NUR ---
PT IN FOWLERS, REPORTS COMFORT AT MOMENT. EFFORTLESS BREATHING ON ROOM AIR. IV PRESENT TO LEFT HAND#22. PERMACATH PORT C/D/I. DENIES ITCHINESS/PAIN AT SITE. BED IN LOWEST POSITION, CALL LIGHT WITHIN REACH.
[2018-06-14 18:25] VITALS: BP 130/54
--- NOTE | 2018-06-14 19:30 | NUR ---
RECIEVED PATIENT AT START OF SHIFT AWAKE, ORIENTED X4, S[place] SPEAKING ONLY. PATIENT APPEARS COMFORTABLE ON RA, NO DISTRESS NOTED. LUNGS CTAB. DENIES CHEST PAIN. PULSES MODERATE, NO EDEMA NOTED. PERMACATH NOTED ON RIGHT CHEST, DRESSING CDI, NO ERYTHEMA. BOWEL SOUNDS ACTIVE, ABDOMEN SOFT. IV TO LHAND SALINE LOCKED AND PATENT. BED LCOKED AND IN LOWEST POSITION, CALL LIGHT AND BEDSIDE TABLE WITHIN REACH. WILL CONTINUE TO MONITOR.
[2018-06-14 20:09] VITALS: BP 124/57
[2018-06-15 04:54] VITALS: BP 148/62
[2018-06-15 06:38] LABS: CALCIUM 8.4 mg/dL (8.5-10.1); CARBON DIOXIDE 23.2 mmol/L (21-32); CHLORIDE SERUM 97 mmol/L (98-107); GLUCOSE SERUM 116 mg/dL (74-106); POTASSIUM SERUM 4.2 mmol/L (3.5-5.1); SODIUM SERUM 132 mmol/L (136-145)
[2018-06-15 06:51] LABS: BASOPHIL % 0.2 % (0-2); PLATELET COUNT 268 x10^3mcL (130-400); RED CELL DISTRIBUTION WIDTH 14.1 % (11.5-14.5)
--- NOTE | 2018-06-15 07:05 | NUR ---
RECEIVED PT FROM NOC NEGRO ESPARZA, PT RESTING IN BED WITH BOTH EYES CLOSED. NO S/S OF ACUTE DISTRESS. NO S/S OF PAIN. FAMILY AT BEDSIDE. MED-SURG. IV WNL TO LH, NO REDNESS, NO SWELLING, NO INFILTRATION, PATENT. FLUSHES WELL. SALINE LOCKED. BED IN LOW POSITION. CALL LIGHT WITHIN REACH. FALL PREC IN PLACE. PT IN ROOM CLOSE TO NURSES STATION. WILL CONT. TO MONITOR.
[2018-06-15 07:14] LABS: CREATININE SERUM 4.8 mg/dL (0.6-1.0)
--- NOTE | 2018-06-15 07:30 | NUR ---
CREA 4.8, SIMILAR TO PREVIOUS TRENDS. PT RECEIVES HD, WILL NOTIFY PHYSICIAN.
[2018-06-15 09:29] VITALS: BP 136/62
--- NOTE | 2018-06-15 11:07 | NUR ---
PT RESTING IN BED WITH BOTH EYES CLOSED. NO S/S OF ACUTE DISTRESS. NO COMPLAINT OF PAIN. NO SOB ON ROOM AIR. NO CHEST PAIN. IV WNL, SALINE LOCKED. BED IN LOW POSITION. CALL LIGHT WITHIN REACH. FALL PREC. IN PLACE. WILL CONT. TO MONITOR.
--- NOTE | 2018-06-15 12:55 | NUR ---
PT COMPLAINT OF NAUSEA, GIVEN MED FOR NAUSEA. AA/OX4. DENIES PAIN. NO S/S OF ACUTE DISTRESS. PT CALM/COOPERATIVE SITTING UP IN BED. BED IN LOW POSITION. CALL LIGHT WITHIN REACH. WILL CONT. TO MONITOR.
--- NOTE | 2018-06-15 15:07 | NUR ---
PT RECEIVING HD AT THIS TIME. NO S/S OF ACUTE DISTRESS. NO SOB ON ROOM AIR. HD RN AT BEDSIDE. VS STABLE. BED IN LOW POSITION. CALL LIGHT WITHIN REACH. WILL CONT. TO MONITOR.
[2018-06-15 16:42] VITALS: BP 89/57
--- NOTE | 2018-06-15 17:50 | NUR ---
PT COMPLAINT OF NAUSEA AND DIZZINESS. WORSE WITH AMBULATION. INSTRUCTED AND TO USE CALL LIGHT TO CALL FOR ASSISTANCE BEFORE AMBULATING. PT AND VERBALIZED UNDERSTANDING. NO S/S OF ACUTE DISTRESS. NO COMPLAINT OF PAIN. NO SOB ON ROOM AIR. PT COMPLAINT OF PAIN AT IV SITE TO LH, IV REMOVED, CATHETER IN TACT. PRESSURE APPLIED. SITE WNL. IV INSERTED TO RH, 22 GAUGE. NO REDNESS, NO SWELLING, PATENT WITH BLOOD RETURN. SALINE LOCKED. AT BEDSIDE. BED IN LOW POSITION. CALL LIGHT WITHIN REACH. FALL PREC IN PLACE. WILL CONT. TO MONITOR.
[2018-06-15 18:29] VITALS: BP 133/63
--- NOTE | 2018-06-15 18:39 | NUR ---
PT SITTING IN BED WITH HOB ELEVATED. AA/OX4. NO S/S OF ACUTE DISTRESS. NO SOB ON ROOM AIR. NO NAUSEA AT THIS TIME. NO DIZZINESS. VS STABLE. PT CALM/COOPERATIVE. FALL PREC. IN PLACE. BED IN LOW POSITION. CALL LIGHT WITHIN REACH. AT BEDSIDE. WILL ENDORSE TO ONCOMING SHIFT.
--- NOTE | 2018-06-15 19:31 | NUR ---
eyes closed, easily awakened. oriented to name, place, time and situation. speech clear and appropriate. breathing even and unlabored. lung sounds clear. on room air. med surg pt. dialysis access catheter to right chest, dressing cdi. saline lock to right hand, free from redness. at bedside.
[2018-06-15 20:33] VITALS: BP 137/71
[2018-06-15 21:36] VITALS: BP 111/53
--- NOTE | 2018-06-15 23:51 | NUR ---
EYES CLOSED, BREATHING EVEN AND UNLABORED ON ROOM AIR. HOB KEPT ELEVATED 30 DEG. CALL LIGHT WITHIN EASY REACH. AT BEDSIDE ON RECLINER, ASLEEP.
[2018-06-16 02:53] VITALS: BP 115/55
--- NOTE | 2018-06-16 02:55 | NUR ---
EYES CLOSED, BREATHING EVEN AND UNLABORED. HOB KEPT ELEVATED 30 DEG. CALL LIGHT WITHIN EASY REACH. UPPER SIDE RAILS KEPT RAISED. AT BEDSIDE ON RECLINER CHAIR. AWAKE.
[2018-06-16 05:43] VITALS: BP 137/61
[2018-06-16 06:50] LABS: BASOPHIL % 0.3 % (0-2); PLATELET COUNT 221 x10^3mcL (130-400); RED CELL DISTRIBUTION WIDTH 15.9 % (11.5-14.5)
[2018-06-16 06:53] LABS: CALCIUM 8.4 mg/dL (8.5-10.1); CHLORIDE SERUM 98 mmol/L (98-107); SODIUM SERUM 134 mmol/L (136-145)
[2018-06-16 06:54] LABS: CREATININE SERUM 4.2 mg/dL (0.6-1.0)
[2018-06-16 07:03] LABS: GLUCOSE SERUM 118 mg/dL (74-106)
--- NOTE | 2018-06-16 07:13 | NUR ---
EYES CLOSED, BREATHING EVEN AND UNLABORED ON ROOM AIR. IN NO ACUTE DISTRESS. ENDORSED TO NURSE SAN
--- NOTE | 2018-06-16 07:45 | NUR ---
AWAKE,AELRT AND ORIENTED,DENIES ANY PAIN AT THIS TIME.CALL LIGHT W/ IN REACH. S/P HEMODIALYSIS 2/4 OUT PUT 2.5 L.ON FLUIDS RESTRICTIONS,C/O GEN WEAKNESS ,REQUIRES. MOD. ASSIST. W/ ADL NEEDS.NO ACUTE DISTRESS NOTED,WILL CONT. PLAN OF CARE.
[2018-06-16 09:22] VITALS: BP 154/52
--- NOTE | 2018-06-16 09:30 | NUR ---
AFTER MULTIPLE ATTEMPTS PATIENT REFUSED TO WORK P.T., STATES SHE WILL BE GETTING D/C SOON TO GO HOME, PRESENT AT BED SIDE.
[2018-06-16] MEDS ORDERED: HYDRALAZINE HCL25 MG PO (09:44)
[2018-06-16] MEDS ORDERED: ADA60 PO (09:45)
[2018-06-16] MEDS ORDERED: ASPIR 8181 MG PO (09:45)
[2018-06-16 11:06] VITALS: BP 154/52
--- NOTE | 2018-06-16 12:00 | NUR ---
PT. WENT HOME W/ STABLE CONDITION PER W/C ACC. W/ HER ,DISCHARGED INSTRUCTIONS AND PRESCRIPTION GIVEN AND DISCUSSED TO PT/ AND VERBALIZED UNDERSTANDING OF INSTRUCTIONS GIVEN. NO ACUTE DISTRESS NOTED. SCORTED BY DONALD IN THE LOBBY.
== END 2018-06-16 12:00 | disposition home or self-care (01) | DRG 280 ==
LOC: ED 14:35 → DU 19:23 → MU 19:23 → DU 21:47 → MU 06-14 16:05
PROVIDERS: Family Medicine; Internal Medicine; Specialist; ADMIT Internal Medicine
DX: I21.A1 Myocardial infarction type 2 (principal); N18.6 End stage renal disease; N17.0 Acute kidney failure with tubular necrosis; E43 Unspecified severe protein-calorie malnutrition; I12.0 Hypertensive chronic kidney disease with stage 5 chronic kidney disease or end stage renal disease; E87.1 Hypo-osmolality and hyponatremia; E87.2 Acidosis; I16.0 Hypertensive urgency; E11.65 Type 2 diabetes mellitus with hyperglycemia; E11.22 Type 2 diabetes mellitus with diabetic chronic kidney disease; R80.9 Proteinuria, unspecified; E87.5 Hyperkalemia; Z99.2 Dependence on renal dialysis; Z68.24 Body mass index [BMI] 24.0-24.9, adult; Z79.84 Long term (current) use of oral hypoglycemic drugs
CPT/HCPCS: 82962; 83880; 84439; 86580; 87804; 90658; 97110-GP; 97112-GP; 97116-GP; 97530-GP; A4301; J0360; J0690; J0885-EC; J1200; J1644; J1815; J1885; J2001; J2250; J2270; J2405; J3010; J3475; J3490; J7030; J8597; Q0092